=== PATIENT | female | born 1985 | race African-American/Black ===

== ENCOUNTER 2016-11-11 14:09 | Emergency (ER) | payer OTHER ==
[~2016-11-11] VITALS: Ht 180.3 cm; Wt 136.1 kg
[~2016-11-11 14:09] MED LIST: ACETAMINOPHEN-1 EAC1 ORAL; AFRIN NASAL SPR30 ML NASAL; AZITHROMYCIN250 MG ORAL; BACTRIM DS TAB1 EAC1 ORAL; BENADRYL25 MG ORAL; CEPHALEXIN500 MG ORAL; CIPROFLOXACIN500 M2 ORAL; CLINDAMYCIN HC150 MG ORAL; CLINDAMYCIN HC300 MG ORAL; DIPHENHYDRAMINE25 M1 ORAL; GOLYTELY SOLU4000 ML PO; IBUPROFEN800 MG ORAL; KEFLEX500 MG ORAL; NITROFURANTOIN100 M2 ORAL; NKM; NORCO 5-325 TA1 EACH ORAL; PREDNISONE20 MG ORAL
[2016-11-11] MEDS ORDERED: Tetanus/Diptheria/Pertussis Vaccine 0.5ml Syr IM ONE (14:45)
[2016-11-11] MEDS ORDERED: Cephalexin 500mg cap ORAL ONE (14:45)
[2016-11-11 14:47] VITALS: BP 123/87
[2016-11-11] MEDS ORDERED: IBUPROFEN600 MG ORAL (14:59)
[2016-11-11] MEDS ORDERED: CEPHALEXIN500 MG ORAL (15:01)
--- NOTE | 2016-11-11 20:33 | Emergency Room Report ---
History of Present Illness General Chief Complaint: Pain Source: Patient Present Illness HPI The patient is a 31 old female presenting with possible skin infection. She states that she noticed a puncture of the left ankle 3 days prior which has now become swollen, red, and painful. Pain is an 8/10 dull ache and does not radiate. Worse with touch. She denies any fever or chills. She denies any known injury to the area. She denies any other symptoms Allergies: Coded Allergies: No Known Allergies (Unverified , 11/05/12) Patient History Past Medical History: see triage record Pertinent Family History: none Last Menstrual Period: 10/28/16 Reviewed Nursing Documentation: PMH: Agreed, PSxH: Agreed Nursing Documentation-PMH Past Medical History: No Stated History Review of Systems All Other Systems: negative except mentioned in HPI Physical Exam Vital Signs Date Time Temp Pulse Resp B/P (MAP) Pulse Ox O2 Delivery O2 Flow Rate FiO2 11/11/16 14:37 98.2 93 16 123/87 97 Room Air Sp02 EP Interpretation: reviewed, normal General Appearance: no apparent distress, alert, GCS 15, non-toxic Head: normocephalic, atraumatic Eyes: bilateral eye normal inspection, bilateral eye PERRL ENT: hearing grossly normal, normal pharynx, no angioedema, normal voice Neck: full range of motion, supple/symm/no masses Respiratory: chest non-tender, lungs clear, normal breath sounds, speaking full sentences Musculoskeletal: back normal, gait/station normal, normal range of motion, no calf tenderness, inflammation - L lateral ankle, swelling - L lateral ankle, tender - TTP over the L lateral ankle Neurologic: alert, oriented x3, responsive, motor strength/tone normal, sensory intact, speech normal Psychiatric: judgement/insight normal, memory normal, mood/affect normal, no suicidal/homicidal ideation Skin: normal color, warm/dry, well hydrated, rash - erythema to L lateral ankle Lymphatic: no adenopathy Medical Decision Making PA Attestation Dr. Wilson is my supervising physician. Patient management was discussed with my supervising physician Diagnostic Impression: Primary Impression: Cellulitis Qualified Codes: L03.116 - Cellulitis of left lower limb ER Course The patient is a 31 old female presenting with possible skin infection Ddx considered include but not limited to insect bite, contact dermatitis, eczema, cellulitis, abscess PE: afebrile. NAD There is edema, erythema, tenderness, and increased warmth over the left lateral ankle. Full active range of motion. The patient will be discharged home with a prescription for Keflex and she is getting ER precautions Last Vital Signs Date Time Temp Pulse Resp B/P (MAP) Pulse Ox O2 Delivery O2 Flow Rate FiO2 11/11/16 15:22 98.2 16 123/87 97 Room Air 11/11/16 14:37 93 Status: improved Disposition: HOME, SELF-CARE Condition: Improved Scripts Cephalexin* (KEFLEX*) 500 Mg Capsule 500 MG ORAL EVERY 6 HOURS, #28 CAP Prov: FREIDA MANCERA 11/11/16 Ibuprofen* (MOTRIN*) 600 Mg Tablet 600 MG ORAL Q8H Y for For Pain, #30 TAB 0 Refills Prov: FREIDA MANCERA 11/11/16 Referrals: [facility],REFERR[facility] (PCP) Patient Instructions: Cellulitis Additional Instructions: I discussed my findings with the patient. All questions and concerns have been answered. Treatment and medication compliance have been addressed. I advised the patient that they need to follow up with PMD in 3-5 days. Return to ED if symptoms worsen, new symptoms arise, or if needed for any reason. Patient verbalized understanding of discharge instructions. FREIDA MANCERA Nov 11, 2016 20:33
== END 2016-11-11 15:22 | disposition home or self-care (01) ==
LOC: EMR 14:56
DX: L03.116 Cellulitis of left lower limb (principal)
CPT/HCPCS: 90471; 90715; 96372; 99284

== ENCOUNTER 2017-01-26 15:24 | Emergency (ER) | payer OTHER ==
[~2017-01-26] VITALS: Ht 180.3 cm; Wt 149.2 kg
[~2017-01-26 15:24] MED LIST changes: +IBUPROFEN600 MG ORAL
[2017-01-26 15:30] VITALS: BP 152/92
--- NOTE | 2017-01-26 15:41 | Emergency Room Report ---
History of Present Illness General Chief Complaint: Earache Source: Patient Present Illness HPI 31-year-old female presents to the emergency department complaining of 10 out of 10 in severity localized pain to the left ear with swelling and white purulent drainage with some erythema. Patient has had a history of skin infection in the past which required draining and she is presenting with similar symptoms. Patient denies fevers, chills, and changes in hearing, rashes , or ear pain, discharge from the inner ear or swollen tender lymph nodes. Patient denies neck pain or stiffness. Denies CP, Palpitations, LOC, AMS, dizziness, Changes in Vision, Sensation, paresthesias, or a sudden severe headache. Allergies: Coded Allergies: No Known Allergies (Unverified , 11/05/12) Patient History Past Medical History: see triage record Past Surgical History: none Pertinent Family History: none Last Menstrual Period: 01/13/17 Immunizations: UTD Reviewed Nursing Documentation: PMH: Agreed, PSxH: Agreed Nursing Documentation-PMH Past Medical History: No Stated History Review of Systems All Other Systems: negative except mentioned in HPI Physical Exam Vital Signs Date Time Temp Pulse Resp B/P (MAP) Pulse Ox O2 Delivery O2 Flow Rate FiO2 01/26/17 15:30 98.2 95 16 152/92 98 Room Air Sp02 EP Interpretation: reviewed, normal General Appearance: no apparent distress, alert, GCS 15, non-toxic Head: normocephalic, atraumatic ENT: hearing grossly normal, normal voice, TMs + canals normal, other - Sebaceous Cyst on the external left ear: lower helix area. Neck: full range of motion Respiratory: lungs clear, normal breath sounds, speaking full sentences Cardiovascular #1: regular rate, rhythm Musculoskeletal: back normal, gait/station normal, normal range of motion Neurologic: alert, oriented x3, responsive, motor strength/tone normal, sensory intact, speech normal Skin: normal color, no rash, warm/dry, well hydrated, other - sebaceous cyst, inflammed to the lower left helix. Lymphatic: no adenopathy Procedures Incision and Drainage Incision and Drainage : Consent: Verbal Site: left lower helix of the ear Blade Size: 20g needle I & D Procedure: betadine prep Wound Location: head - left ear lower helix Wound's Depth, Shape: superficial Wound Length (cm): 1 Wound Explored: contaminated - thick purulent foul smelling d/c is expressed Patient Tolerated: Well Complications: None Medical Decision Making PA Attestation Dr. Cowan is my supervising Physician whom patient management has been discussed with. Diagnostic Impression: Primary Impression: Sebaceous cyst of ear ER Course 31-year-old female presents to the emergency department complaining of 10 out of 10 in severity localized pain to the left ear with swelling and white purulent drainage with some erythema. Patient has had a history of skin infection in the past which required draining and she is presenting with similar symptoms. Patient denies fevers, chills, and changes in hearing, rashes , or ear pain, discharge from the inner ear or swollen tender lymph nodes. Patient denies neck pain or stiffness. Denies CP, Palpitations, LOC, AMS, dizziness, Changes in Vision, Sensation, paresthesias, or a sudden severe headache. Ddx considered but are not limited to cellulitis, abscess, cystic acne, necrotizing fasciitis, insect bite. Vital signs: are WNL, pt. is afebrile H&PE are most consistent with sebaceous cyst of the left ear with acute inflammation ORDERS: none required at this time, the diagnosis is clinical ED INTERVENTIONS: - verbal consent was obtained by pt. for Needle Aspiration, and manual pressure to assist drainage. Thick white foul smelling d/c is expressed. bleeding is minimal, pt. tolerated well without anesthesia. there were no complications. d/w pt. that cyst will re-occur unless surgically removed- this is performed as an outpatient, follow up with PCP to facilitate this. DISCHARGE: At this time pt. is stable for d/c to home. Will provide printed patient care instructions, and any necessary prescriptions. Care plan and follow up instructions have been discussed with the patient prior to discharge. Last Vital Signs Date Time Temp Pulse Resp B/P (MAP) Pulse Ox O2 Delivery O2 Flow Rate FiO2 01/26/17 15:30 98.2 95 16 152/92 98 Room Air Disposition: HOME, SELF-CARE Condition: Stable Scripts Clindamycin Hcl (CLINDAMYCIN HCL) 300 Mg Capsule 300 MG ORAL FOUR TIMES A DAY for 5 Days, #20 CAP Prov: Cinda Figueredo P.ARegan 01/26/17 Bacitracin/Polymyxin B Sulfate (BACITRACIN-POLYMYXIN OINTMENT) 28.35 Gm Oint...g. 1 APPLIC TP BID, #28.3 GM Prov: Cinda Figueredo 01/26/17 Patient Instructions: Sebaceous Cyst Removal Additional Instructions: Take medications as directed. Follow up with a Primary Care Provider in 3-5 days, even if your symptoms have resolved. --Please review list of primary care clinics, if you do not already have a primary care provider Return sooner to ED if new symptoms occur, or current symptoms become worse. - Please note that this Emergency Department Report was dictated using GROUNDFLOORcar loader technology software, occasionally this can lead to erroneous entry secondary to interpretation by the dictation equipment. Cinda Figueredo Jan 26, 2017 15:41
[2017-01-26] MEDS ORDERED: BACITRACIN-P28.35 GM TP (16:16)
[2017-01-26] MEDS ORDERED: CLINDAMYCIN HC300 MG ORAL (16:18)
[2017-01-26 16:23] VITALS: BP 144/75
== END 2017-01-26 16:25 | disposition home or self-care (01) ==
LOC: EMR 16:00
DX: L72.3 Sebaceous cyst (principal)
CPT/HCPCS: 10060; 99284

== ENCOUNTER 2017-03-06 15:30 | Emergency (ER) | payer OTHER ==
[~2017-03-06] VITALS: Ht 182.9 cm; Wt 136.1 kg
[~2017-03-06 15:30] MED LIST changes: +BACITRACIN-P28.35 GM TP
[2017-03-06 15:50] VITALS: BP 121/75
[2017-03-06] MEDS ORDERED: BENADRYL25 MG ORAL (17:24)
[2017-03-06] MEDS ORDERED: CEPHALEXIN500 MG ORAL (17:24)
[2017-03-06] MEDS ORDERED: KENALOG 0.025%15 GM APPLIC (17:24)
[2017-03-06 17:29] VITALS: BP 118/69
--- NOTE | 2017-03-06 23:54 | Emergency Room Report ---
History of Present Illness General Chief Complaint: Skin Rash/Abscess Source: Patient Present Illness [facility] The patient is a 31-year-old female presenting for rash. She noticed this 3 days prior after sleeping on a couch. She describes this is extremely itchy. She denies any pain. She noticed bumps on the left shoulder and both legs. She has not tried any medications at. She denies any other symptoms including fever, chills, nausea, vomiting Allergies: Coded Allergies: No Known Allergies (Unverified , 11/05/12) Patient History Past Medical History: see triage record Pertinent Family History: none Last Menstrual Period: 01/22/17. Now: No Reviewed Nursing Documentation: PMH: Agreed, PSxH: Agreed Nursing Documentation-PMH Past Medical History: No Stated History Review of Systems All Other Systems: negative except mentioned in HPI Physical Exam Vital Signs Date Time Temp Pulse Resp B/P (MAP) Pulse Ox O2 Delivery O2 Flow Rate FiO2 03/06/17 15:39 98.1 109 19 121/75 98 Room Air Sp02 EP Interpretation: reviewed, normal General Appearance: no apparent distress, alert, GCS 15, non-toxic Head: normocephalic, atraumatic Eyes: bilateral eye normal inspection, bilateral eye PERRL ENT: hearing grossly normal, normal pharynx, no angioedema, normal voice Respiratory: chest non-tender, lungs clear, normal breath sounds, speaking full sentences Musculoskeletal: back normal, gait/station normal, normal range of motion, non- tender Neurologic: alert, oriented x3, responsive, motor strength/tone normal, sensory intact, speech normal Psychiatric: judgement/insight normal, memory normal, mood/affect normal, no suicidal/homicidal ideation Skin: rash - There are multiple papules on the left shoulder as well as bilateral lower extremities. Left mid thigh has a lesion with surrounding erythema. Indurated. Tender to touch. Lymphatic: no adenopathy Medical Decision Making PA Attestation Dr. Wilson is my supervising physician. Patient management was discussed with my supervising physician Diagnostic Impression: Primary Impression: Insect bite Qualified Codes: W57.XXXA - Bitten or stung by nonvenomous insect and other nonvenomous arthropods, initial encounter Additional Impression: Cellulitis Qualified Codes: L03.119 - Cellulitis of unspecified part of limb ER Course The patient is a 31-year-old female presenting for rash. Ddx considered include but not limited to insect bite, contact dermatitis, eczema, cellulitis PE: afebrile. NAD There are multiple papules on the left shoulder as well as bilateral lower extremities. Left mid thigh has a lesion with surrounding erythema. Indurated. Tender to touch.No central clearing. No targets sign The patient will be treated for insect bite with possible infection. She is given prescription for topical steroids as well as oral antibiotics. ER precautions are given Last Vital Signs Date Time Temp Pulse Resp B/P (MAP) Pulse Ox O2 Delivery O2 Flow Rate FiO2 03/06/17 17:29 98.1 97 19 118/69 98 Room Air Status: improved Disposition: HOME, SELF-CARE Condition: Scripts Cephalexin* (KEFLEX*) 500 Mg Capsule 500 MG ORAL EVERY 12 HOURS, #14 CAP 0 Refills Prov: FREIDA MANCERA.A. 03/06/17 Triamcinolone Acet (Triamcinolone Acetonide) 15 Gm Cream..g. 0.1 % APPLIC TID, #15 GM Prov: FREIDA MANCERA.A. 03/06/17 Diphenhydramine Hcl* (BENADRYL*) 25 Mg Capsule 25 MG ORAL Q6H Y for Itching, #30 CAP Prov: FREIDA MANCERA.A. 03/06/17 Patient Instructions: Rash Additional Instructions: I discussed my findings with the patient. All questions and concerns have been answered. Treatment and medication compliance have been addressed. I advised the patient that they need to follow up with PMD in 3-5 days. Return to ED if symptoms worsen, new symptoms arise, or if needed for any reason. Patient verbalized understanding of discharge instructions. FREIDA MANCERA Mar 06, 2017 23:54
== END 2017-03-06 17:29 | disposition home or self-care (01) ==
LOC: EMR 17:04
DX: S40.262A Insect bite (nonvenomous) of left shoulder, initial encounter (principal); S80.862A Insect bite (nonvenomous), left lower leg, initial encounter; S80.861A Insect bite (nonvenomous), right lower leg, initial encounter; W57.XXXA Bitten or stung by nonvenomous insect and other nonvenomous arthropods, initial encounter; Y92.9 Unspecified place or not applicable; L03.116 Cellulitis of left lower limb; L03.113 Cellulitis of right upper limb
CPT/HCPCS: 99284

== ENCOUNTER 2017-06-24 14:59 | Emergency (ER) | payer OTHER ==
[~2017-06-24] VITALS: Ht 182.9 cm; Wt 136.1 kg
[~2017-06-24 14:59] MED LIST changes: +KENALOG 0.025%15 GM APPLIC
[2017-06-24 15:07] VITALS: BP 114/76
--- NOTE | 2017-06-24 15:32 | Emergency Room Report ---
History of Present Illness General Chief Complaint: Skin Rash/Abscess Source: Patient Present Illness HPI 31 YO Female presents with itching, swelling and erythema to two lesions on the right arm. Patient states her arm is tender but she is not having pain at this time. She states onset of her symptoms were 2 days ago. She denies fevers, chills, recent travel or ill contacts. Patient states that there are a lot of trees outside where she lives and she is constantly getting bug bites. Patient denies hiking. Denies lesions/rashes elsewhere on the body. Denies new medications or body washes or creams. Denies swelling of the lips, tongue , throat or airway. Denies wheezing, or shortness of breath. Denies recent travel , recent illness or ill contacts. denies blisters, oral lesions, or sloughing of the skin. Allergies: Coded Allergies: No Known Allergies (Unverified , 11/05/12) Patient History Past Medical History: see triage record Past Surgical History: none Pertinent Family History: none Last Menstrual Period: 06/22/17 Now: No Reviewed Nursing Documentation: PMH: Agreed; PSxH: Agreed Nursing Documentation-PMH Past Medical History: No Stated History Review of Systems All Other Systems: negative except mentioned in HPI Physical Exam Vital Signs Date Time Temp Pulse Resp B/P (MAP) Pulse Ox O2 Delivery O2 Flow Rate FiO2 06/24/17 15:07 97.6 96 18 114/76 99 Room Air 97.5 Sp02 EP Interpretation: reviewed, normal General Appearance: no apparent distress, alert, GCS 15, non-toxic Head: normocephalic, atraumatic ENT: hearing grossly normal, no angioedema, normal voice, other - no swelling of the lips or tongue Neck: full range of motion Respiratory: chest non-tender, lungs clear, normal breath sounds, no rhonchi, no wheezing, speaking full sentences Cardiovascular #1: regular rate, rhythm, no edema, normal capillary refill Musculoskeletal: back normal, gait/station normal, normal range of motion, non- tender Neurologic: alert, oriented x3, responsive, motor strength/tone normal, sensory intact, speech normal, grossly normal Psychiatric: judgement/insight normal Skin: warm/dry, well hydrated, other - two circular scabbed lesions on the right forearm with surrounding erythema and increased temperature to palpation. no blisters or vesicles. Lymphatic: no adenopathy Medical Decision Making PA Attestation Dr. Fitzpatrick is my supervising Physician whom patient management has been discussed with. Diagnostic Impression: Primary Impression: Cellulitis Qualified Codes: L03.113 - Cellulitis of right upper limb Additional Impression: Insect bite Qualified Codes: W57.XXXA - Bitten or stung by nonvenomous insect and other nonvenomous arthropods, initial encounter ER Course 31 YO Female presents with itching, swelling and erythema to two lesions on the right arm. Patient states her arm is tender but she is not having pain at this time. She states onset of her symptoms were 2 days ago. She denies fevers, chills, recent travel or ill contacts. Patient states that there are a lot of trees outside where she lives and she is constantly getting bug bites. Patient denies hiking. Denies lesions/rashes elsewhere on the body. Denies new medications or body washes or creams. Denies swelling of the lips, tongue , throat or airway. Denies wheezing, or shortness of breath. Denies recent travel , recent illness or ill contacts. denies blisters, oral lesions, or sloughing of the skin. Ddx considered but are not limited to cellulitis, scabies, insect bites, tic bites, spider bites, contact dermatitis, Drug reaction, allergic reaction, fungal infection, lice. Vital signs: are WNL, pt. is afebrile H&PE are most consistent with insect bites with secondary cellulitis. ORDERS: none required at this time, the diagnosis is clinical ED INTERVENTIONS: None required at this time. DISCHARGE: At this time pt. is stable for d/c to home. Will provide printed patient care instructions, and any necessary prescriptions. Care plan and follow up instructions have been discussed with the patient prior to discharge. Last Vital Signs Date Time Temp Pulse Resp B/P (MAP) Pulse Ox O2 Delivery O2 Flow Rate FiO2 06/24/17 15:07 97.6 96 18 114/76 99 Room Air 97.6 Disposition: HOME, SELF-CARE Condition: Stable Scripts Bacitracin/Polymyxin B Sulfate (BACITRACIN-POLYMYXIN OINTMENT) 28.35 Gm Oint...g. 1 APPLIC TP BID, #28.3 GM Prov: Cinda Figueredo 06/24/17 Cephalexin* (KEFLEX*) 500 Mg Capsule 500 MG ORAL EVERY 12 HOURS for 7 Days, #14 CAP 0 Refills Prov: Cinda Figueredo 06/24/17 Trimethoprim/Sulfamethoxazole 160/800* (BACTRIM DS TABLET*) 1 Each Tablet 1 TAB ORAL TWICE A DAY for 7 Days, #14 TAB Prov: Cinda Figueredo 06/24/17 Hydrocortisone (Hydrocortisone Cream 2.5%) Y Cream.appl 1 APPLIC TP BID, #28.3 GM Prov: Cinda Figueredo 06/24/17 Patient Instructions: Cellulitis, [id number], Insect Bite, [id number] Additional Instructions: Take medications as directed. Follow up with a Primary Care Provider in 3-5 days, even if your symptoms have resolved. --Please review list of primary care clinics, if you do not already have a primary care provider Return sooner to ED if new symptoms occur, or current symptoms become worse. - Please note that this Emergency Department Report was dictated using HRBossclothing man technology software, occasionally this can lead to erroneous entry secondary to interpretation by the dictation equipment. Cinda Figueredo Jun 24, 2017 15:32
[2017-06-24] MEDS ORDERED: BACTRIM DS TAB1 EAC1 ORAL (15:34)
[2017-06-24] MEDS ORDERED: BACITRACIN-P28.35 GM TP (15:34)
[2017-06-24] MEDS ORDERED: HYDROCORTISONE30 G2 TP (15:34)
[2017-06-24] MEDS ORDERED: CEPHALEXIN500 MG ORAL (15:34)
[2017-06-24 16:02] VITALS: BP 114/76
== END 2017-06-24 16:02 | disposition home or self-care (01) ==
LOC: EMR 15:53
DX: L03.113 Cellulitis of right upper limb (principal); S50.861A Insect bite (nonvenomous) of right forearm, initial encounter; W57.XXXA Bitten or stung by nonvenomous insect and other nonvenomous arthropods, initial encounter; Y93.9 Activity, unspecified; Y92.9 Unspecified place or not applicable
CPT/HCPCS: 99284

== ENCOUNTER 2019-03-06 13:35 | Emergency (ER) | payer OTHER ==
[~2019-03-06] VITALS: Ht 185.4 cm; Wt 136.1 kg
[~2019-03-06 13:35] MED LIST changes: +HYDROCORTISONE30 G2 TP
[2019-03-06 14:27] VITALS: BP 124/80
[2019-03-06] MEDS ORDERED: GUAIFENESIN AC473 ML ORAL (14:36)
[2019-03-06] MEDS ORDERED: TESSALON PERLE100 MG ORAL (14:36)
--- NOTE | 2019-03-06 14:37 | Emergency Room Report ---
History of Present Illness General Chief Complaint: Upper Respiratory Illness Source: Patient Present Illness HPI 33-year-old female presents with cough, congestion, no fevers no chills, states that she lost her voice 3 days ago, she states that the cough and congestion has been ongoing for about 1.5 weeks she is slowly improved and she feels fine she does endorse some sore throat aggravated by swallowing alleviated with rest , severity is mild patient is wondering what is going on patient feels fine currently patient presents for evaluation Allergies: Coded Allergies: No Known Allergies (Unverified , 11/05/12) Patient History Past Medical History: see triage record Last Menstrual Period: 02/21/19 Now: No Reviewed Nursing Documentation: PMH: Agreed; PSxH: Agreed Nursing Documentation-PMH Past Medical History: No Stated History Review of Systems All Other Systems: negative except mentioned in HPI Physical Exam Vital Signs Date Time Temp Pulse Resp B/P (MAP) Pulse Ox O2 Delivery O2 Flow Rate FiO2 03/06/19 13:45 97.3 104 14 124/80 (95) 89 Room Air Sp02 EP Interpretation: reviewed, normal General Appearance: well appearing, no apparent distress, alert Head: normocephalic, atraumatic Eyes: bilateral eye PERRL, bilateral eye EOMI ENT: uvula midline, moist mucus membranes, nasal congestion, pharyngeal erythema Neck: supple, thyroid normal, supple/symm/no masses Respiratory: lungs clear, no respiratory distress, no retraction, no accessory muscle use Cardiovascular #1: normal peripheral pulses, regular rate, rhythm, no edema, no gallop, no murmur Gastrointestinal: non tender, soft, no guarding, no rebound Musculoskeletal: normal inspection Neurologic: alert, oriented x3 Psychiatric: mood/affect normal Skin: no rash, warm/dry Medical Decision Making Diagnostic Impression: Primary Impression: Upper respiratory infection Qualified Codes: J06.9 - Acute upper respiratory infection, unspecified Additional Impression: Laryngitis ER Course 33-year-old female presents most likely with a laryngitis differential diagnosis includes URI, pharyngitis Symptomatic care no indications for x-ray Disposition home with return precautions Last Vital Signs Date Time Temp Pulse Resp B/P (MAP) Pulse Ox O2 Delivery O2 Flow Rate FiO2 03/06/19 14:27 97.3 89 14 124/80 89 Room Air Disposition: HOME, SELF-CARE Condition: Stable Scripts Guaifenesin/Codeine Phosphate (GUAIFENESIN AC COUGH SYRUP) 473 Ml Liquid 1 TSP ORAL Q8H PRN for For Cough, #473 ML 0 Refills Prov: Everette Russ MD 03/06/19 Benzonatate* (TESSALON PERLE*) 100 Mg Capsule 100 MG ORAL THREE TIMES A DAY PRN for For Cough, #15 PERLE Prov: Everette Russ MD 03/06/19 Referrals: [facility] Kale Peña [facility] Patient Instructions: Laryngitis, [id number], Upper Respiratory Infection, Adult Additional Instructions: The patient was provided with discharge instructions, notified to follow-up with a primary care doctor and or specialist in the next 24-48 hours, and to return to the ED if they have worsening of their symptoms. Please note that this report is being documented using DRAGON technology. This can lead to erroneous entry secondary to incorrect interpretation by the dictating instrument. Everette Russ MD Mar 06, 2019 14:37
[2019-03-06 14:39] VITALS: BP 126/71
== END 2019-03-06 14:40 | disposition home or self-care (01) ==
LOC: EMR 14:30
DX: J06.9 Acute upper respiratory infection, unspecified (principal); J04.0 Acute laryngitis
CPT/HCPCS: 99282

== ENCOUNTER 2019-11-18 14:48 | Emergency (ER) | payer OTHER ==
[~2019-11-18] VITALS: Ht 182.9 cm; Wt 136.1 kg
[~2019-11-18 14:48] MED LIST changes: +GUAIFENESIN AC473 ML ORAL; +TESSALON PERLE100 MG ORAL
[2019-11-18 14:59] VITALS: BP 101/71
--- NOTE | 2019-11-18 15:07 | Emergency Room Report ---
History of Present Illness General Chief Complaint: Earache Source: Patient Present Illness HPI 34-year-old female with no known segment past medical history here complaining of 3 days of right-sided throat pain and swelling and 1 day of right-sided earache and sinus congestion. Denies any fever and chills and cough. Denies nausea vomiting diarrhea.Has not taken medication for symptom relief. Denies any water exposure. Reports that she feels muffled inside right ear. Denies any vertigo, dizziness, hearing loss, tinnitus. Denies any head injury. Denies any pus drainage or bleeding to the ER. Has not taken medication for symptom relief. Reports that for the past week she has been sleeping in front of a blowing air conditioning. Denies . 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 Patient History Past Medical History: see triage record Past Surgical History: none Pertinent Family History: none Last Menstrual Period: 10/22/2019 Now: No Immunizations: UTD Reviewed Nursing Documentation: PMH: Agreed; PSxH: Agreed Nursing Documentation-PMH Past Medical History: No Stated History Review of Systems All Other Systems: negative except mentioned in HPI Physical Exam Vital Signs Date Time Temp Pulse Resp B/P (MAP) Pulse Ox O2 Delivery O2 Flow Rate FiO2 11/18/19 14:55 97.5 91 15 101/71 (81) 100 Room Air Sp02 EP Interpretation: reviewed, normal General Appearance: normal inspection Head: normocephalic, atraumatic Eyes: bilateral eye normal inspection, bilateral eye PERRL ENT: TMs + canals normal, nasal congestion, tonsillar swelling, pharyngeal erythema, tonsillar exudate, other - Right ear canal erythematous and tragus tender to palpation Neck: full range of motion, supple/symm/no masses Respiratory: chest non-tender, lungs clear, normal breath sounds, speaking full sentences Cardiovascular #1: regular rate, rhythm, no edema Rectal: deferred Musculoskeletal: back normal Neurologic: alert, motor strength/tone normal, oriented x3, sensory intact, responsive, speech normal Psychiatric: judgement/insight normal, memory normal, mood/affect normal, no suicidal/homicidal ideation Skin: no rash Lymphatic: adenopathy - Right anterior cervical lymphadenopathy Medical Decision Making PA Attestation All diagnosis and treatment plans were discussed and reviewed by my supervising physician Dr. Ivey Diagnostic Impression: Primary Impression: Strep pharyngitis Additional Impressions: Otalgia Otitis externa ER Course 34-year-old female with no known segment past medical history here complaining of 3 days of right-sided throat pain and swelling and 1 day of right-sided earache and sinus congestion. Denies any fever and chills and cough. Denies nausea vomiting diarrhea.Has not taken medication for symptom relief. Denies any water exposure. Reports that she feels muffled inside right ear. Denies any vertigo, dizziness, hearing loss, tinnitus. Denies any head injury. Denies any pus drainage or bleeding to the ER. Has not taken medication for symptom relief. Reports that for the past week she has been sleeping in front of a blowing air conditioning. Denies . Ddx considered but are not limited to: strep pharyngitis, URI, tonsillitis, peritonsillar abscess, influenza, otitis media, otitis externa, otalgia Vital signs: are WNL, pt. is afebrile H&PE are most consistent with: Otitis externa, strep pharyngitis, otalgia ORDERS: Augmentin, ofloxacin otic, Motrin ED INTERVENTIONS: None required at this time. DISCHARGE: At this time pt. is stable for d/c to home. Will provide printed patient care instructions, and any necessary prescriptions. Care plan and follow up instructions have been discussed with the patient prior to discharge. Patient take medication as directed, follow primary care provider, worsening symptoms return to the emergency room Last Vital Signs Date Time Temp Pulse Resp B/P (MAP) Pulse Ox O2 Delivery O2 Flow Rate FiO2 11/18/19 14:55 97.5 91 15 101/71 (81) 100 Room Air Disposition: HOME, SELF-CARE Condition: Stable Scripts Ibuprofen* (MOTRIN*) 600 Mg Tablet 600 MG ORAL THREE TIMES A DAY, #30 TAB Prov: Debra Mazariegos 11/18/19 Ofloxacin (OFLOXACIN) 5 Ml Drops 5 DROP OT DAILY for 7 Days, #5 ML Prov: Debra Mazariegos 11/18/19 Amoxicillin/Potassium Clav 875-125* (AUGMENTIN 875-125 TABLET*) 1 Each Tablet 1 TAB ORAL TWICE A DAY for 10 Days, #20 TAB Prov: Debra Mazariegos 11/18/19 Patient Instructions: Earache, Pharyngitis, [id number] Additional Instructions: Take medication as directed, follow-up with your primary care provider, worsening symptoms return to the emergency room Debra Mazariegos Nov 18, 2019 15:07
[2019-11-18] MEDS ORDERED: IBUPROFEN600 M1 ORAL (15:09)
[2019-11-18] MEDS ORDERED: AUGMENTIN 875-1 EAC1 ORAL (15:09)
[2019-11-18] MEDS ORDERED: OFLOXACIN5 ML OT (15:09)
== END 2019-11-18 15:15 | disposition home or self-care (01) ==
LOC: EMR 15:00
DX: J02.0 Streptococcal pharyngitis (principal); H92.01 Otalgia, right ear; H60.91 Unspecified otitis externa, right ear
CPT/HCPCS: 99282

== ENCOUNTER 2020-02-24 14:14 | Emergency (ER) | payer OTHER ==
[~2020-02-24] VITALS: Ht 180.3 cm; Wt 136.1 kg
[~2020-02-24 14:14] MED LIST changes: +AUGMENTIN 875-1 EAC1 ORAL; +IBUPROFEN600 M1 ORAL; +OFLOXACIN5 ML OT
[2020-02-24 14:25] VITALS: BP 113/74
--- NOTE | 2020-02-24 14:25 | NUR ---
ED Nurse Note: Pt walked in to ED from home c/o bilateral earache x1 week. Denies ear discharges/ difficulty hearing. AAOx4, no SOB. No fever.
--- NOTE | 2020-02-24 14:45 | Emergency Room Report ---
History of Present Illness General Chief Complaint: Earache Source: Patient Present Illness HPI 34-year-old female with no significant past medical history here complaining of bilateral earache and sinus pressure x1 week. Denies any sore throat, cough and congestion. Denies fever and chills, loss of taste and smell, diarrhea. Frontal sinuses tender to palpation. Has not taken medication for symptom relief. Denies . 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 Patient History Past Medical History: see triage record Past Surgical History: none Pertinent Family History: none Last Menstrual Period: 02/06/20 Now: No Immunizations: UTD Reviewed Nursing Documentation: PMH: Agreed; PSxH: Agreed Nursing Documentation-PMH Past Medical History: No Stated History Review of Systems All Other Systems: negative except mentioned in HPI Physical Exam Vital Signs Date Time Temp Pulse Resp B/P (MAP) Pulse Ox O2 Delivery O2 Flow Rate FiO2 02/24/20 14:19 98.2 98 20 113/74 (87) 98 Room Air Sp02 EP Interpretation: reviewed, normal General Appearance: no apparent distress, alert, GCS 15, non-toxic Head: normocephalic, atraumatic Eyes: bilateral eye normal inspection, bilateral eye PERRL ENT: EOM grossly intact, normal pharynx, TMs + canals normal, other - Frontal sinuses tender to palpation Respiratory: no retraction, no accessory muscle use, speaking full sentences Cardiovascular #1: regular rate, rhythm, no edema Gastrointestinal: soft Genitourinary: no CVA tenderness Musculoskeletal: back normal Neurologic: alert, motor strength/tone normal, oriented x3, sensory intact, responsive, speech normal Psychiatric: judgement/insight normal, memory normal, mood/affect normal, no suicidal/homicidal ideation Skin: no rash Lymphatic: no adenopathy Medical Decision Making PA Attestation All my diagnosis and treatment plans were reviewed ad discussed with my supervising physician Dr. Guallpa Diagnostic Impression: Primary Impression: Sinus pressure ER Course 34-year-old female with no significant past medical history here complaining of bilateral earache and sinus pressure x1 week. Denies any sore throat, cough and congestion. Denies fever and chills, loss of taste and smell, diarrhea. Frontal sinuses tender to palpation. Has not taken medication for symptom reli ef. Denies . Ddx considered but are not limited to: strep pharyngitis, URI, tonsillitis, peritonsillar abscess, influneza Vital signs: are WNL, pt. is afebrile H&PE are most consistent with: Sinus infection ORDERS: Azithromycin, prednisone ED INTERVENTIONS: None required at this time. DISCHARGE: At this time pt. is stable for d/c to home. Will provide printed patient care instructions, and any necessary prescriptions. Care plan and follow up instructions have been discussed with the patient prior to discharge. Advised patient to get tested for Covid, take medication as directed, if worsening symptoms return to emergency room Last Vital Signs Date Time Temp Pulse Resp B/P (MAP) Pulse Ox O2 Delivery O2 Flow Rate FiO2 02/24/20 14:25 98.2 98 20 113/74 98 Room Air Disposition: HOME, SELF-CARE Condition: Stable Scripts Prednisone* (PREDNISONE*) 20 Mg Tablet 40 MG ORAL DAILY for 5 Days, #10 TAB Prov: Debra Mazariegos 02/24/20 Azithromycin* (ZITHROMAX*) 250 Mg Tablet 250 MG ORAL DAILY, #6 TAB 0 Refills Take two tables once daily for 1 day, then one tablet once daily for 4 days. Prov: Debra Mazariegos 02/24/20 Patient Instructions: Sinusitis, Adult Debra Mazariegos Feb 24, 2020 14:45
[2020-02-24] MEDS ORDERED: PREDNISONE20 MG ORAL (14:46)
[2020-02-24] MEDS ORDERED: ZITHROMAX250 MG ORAL (14:46)
[2020-02-24 14:56] VITALS: BP 113/74
--- NOTE | 2020-02-24 14:56 | NUR ---
ED Nurse Note: Pt cleared by ERPA for discharge. DC instructions/prescription was given and explained to pt and verbalized understanding of teachings. All medical deviecs such as ID band removed. Pt is AAO x4, ambulatory and left with all personal belongings.
== END 2020-02-24 14:56 | disposition home or self-care (01) ==
LOC: EMR 14:30
DX: J34.89 Other specified disorders of nose and nasal sinuses (principal)
CPT/HCPCS: 99282